=== PATIENT | male | born 1960 | race Caucasian/White ===

== ENCOUNTER 2021-10-05 15:18 | Outpatient (CLI) | payer BC, SELFPAY ==
--- NOTE | ~2021-10-05 | XR_ITS ---
EXAMINATION: XR abdomen/kub 1V EXAM DATE: 10/05/2021 15:52 INDICATION: Chronic Bilateral Renal Stones, No Pain Currently TECHNIQUE: Frontal projection(s) of the abdomen for interpretation. There are no prior studies for co mparison. FINDINGS: Calcifications, possible sizable bilateral nephrolithiasis identified, indicated. Correlate with patient's prior cross-sectional imaging. Nonobstructive bowel gas pattern. Colonic stool and ga s. Mild to moderate symmetric bilateral hip osteoarthritis. IMPRESSION: Probable bilateral nephrolithiasis. Reviewed, dictated and finalized at location G. IESEL PRODUCT DEVELOPMENT MANAGER
== END 2021-10-05 15:19 | disposition home or self-care (01) ==
PROVIDERS: PCP Family Medicine; Visit Provider Nurse Practitioner Adult Health
DX: N20.0 Calculus of kidney (principal); M16.0 Bilateral primary osteoarthritis of hip
CPT/HCPCS: 74018

== ENCOUNTER 2021-11-14 15:36 | Outpatient (CLI) | payer BC, SELFPAY ==
--- NOTE | ~2021-11-14 | XR_ITS ---
EXAMINATION: XR abdomen/kub 1V DATE: 11/14/2021 15:57 INDICATION: Renal stone TECHNIQUE: A supine view of the abdomen on 2 radiographs was obtained. COMPARISON: 10/05/2021 FINDINGS: Again seen are calcifications projecting over the bilateral kidneys likely representing renal stones. The 2 on the right measure 4 mm and 10 mm in the 3 and the left measured 2 mm 8 mm and 6 mm. No ston es seen along the course of ureters. Bone island at the left iliac wing. Couple small phleboliths in the right hemipelvis. Normal bowel gas pattern. Visualized portion of the lung bases are clear. IMPRESSION: 1. Unchanged bilateral nephrolithiasis. Reviewed, dictated and finalized at location A. OBIAL SPECIALIST
== END 2021-11-14 15:37 | disposition home or self-care (01) ==
LOC: ANHIMG 15:40
PROVIDERS: PCP Family Medicine; Visit Provider Nurse Practitioner Adult Health
DX: N20.0 Calculus of kidney (principal)
CPT/HCPCS: 74018

== ENCOUNTER 2022-03-13 10:43 | Outpatient (CLI) | payer BC, SELFPAY ==
--- NOTE | ~2022-03-13 | XR_ITS ---
XR abdomen/kub 1V DATE: 03/13/2022 11:02 INDICATION: Calcium kidney stone TECHNIQUE: AP projection, 2 views COMPARISON: November 14, 2021 KUB FINDINGS: Multiple bilateral calcified kidney stones are again noted. No calcified stones are suggest ed over the course of the ureters. There is a fairly prominent amount of fecal material in the colon but no apparent bowel obstruction. No visceromegaly is noted. IMPRESSION: Bilateral calcified kidney stones Reviewed, dictated and finalized at Location A. Reviewed, dictated and finalized at location A.
== END 2022-03-13 10:44 | disposition home or self-care (01) ==
PROVIDERS: PCP Family Medicine; Visit Provider Urology
DX: N20.0 Calculus of kidney (principal)
CPT/HCPCS: 74018

== ENCOUNTER 2022-09-13 10:59 | Outpatient (CLI) | payer BC, SELFPAY ==
--- NOTE | ~2022-09-13 | XR_ITS ---
EXAMINATION: XR abdomen/kub 1V INDICATION: Calcium TECHNIQUE: Supine views of the abdomen were obtained on 2 radiographs. COMPARISON: 03/13/2022 FINDINGS: There are adjacent stones of the left kidney lower pole measuring seven 5 mm. There is stab le 9 mm stone in the right kidney. Smaller stones of the right kidney measure up to 5 mm. No stones a re identified along the expected courses of the ureters or in the urinary bladder the bowel gas patte rn is normal. The visualized lung bases. There is moderate osteoarthritis of the hips. IMPRESSION: 1. Stable bilateral nephrolithiasis. Reviewed, dictated and finalized at location A. ENT
== END 2022-09-13 11:00 | disposition home or self-care (01) ==
PROVIDERS: PCP Family Medicine; Visit Provider Urology
DX: N20.0 Calculus of kidney (principal)
CPT/HCPCS: 74018

== ENCOUNTER 2023-10-10 10:01 | Outpatient (CLI) | payer BC, SELFPAY ==
--- NOTE | ~2023-10-10 | XR_ITS ---
XR abdomen/kub 1V DATE: 10/10/2023 10:27 INDICATION: Right flank pain. Calcium kidney stone. TECHNIQUE: Supine and upright AP views COMPARISON: None FINDINGS: There are bilateral lower pole renal calcified calculi and an approximately 7 mm mid to upp er right renal calcified calculus, probable additional small right renal calculus(calculi). There is a small calcification overlying the lower left pelvic area; distal left ureteral or ureterov esical junction calcified calculus is not excluded. No other apparent urinary tract calculus is detected. Noncontrast CT abdomen examination would be more definitive for evaluation of urinary tract calculi. No evidence of bowel obstruction. No visceromegaly is detected. Included skeletal structures appear u nremarkable. IMPRESSION: Bilateral nephrolithiasis; cannot exclude distal left ureteral or ureterovesical junction calcified calculus. Consider noncontrast CT abdomen pelvis for more definitive evaluation of urinary tract calculi. Reviewed, dictated and finalized at Location A. Reviewed, dictated and finalized at location B. WIRE ARTIST IMPRESSION: Bilateral nephrolithiasis; cannot exclude distal left ureteral or u reterovesical junction calcified calculus. Consider noncontrast CT abdomen pelv is for more definitive evaluation of urinary tract calculi.
== END 2023-10-10 10:02 | disposition home or self-care (01) ==
LOC: ANHIMG 10:02
PROVIDERS: PCP Family Medicine; Visit Provider Urology
DX: N20.0 Calculus of kidney (principal)
CPT/HCPCS: 74018

== ENCOUNTER 2024-04-22 11:54 | Outpatient (CLI) | payer BC, SELFPAY ==
--- NOTE | ~2024-04-22 | XR_ITS ---
XR abdomen/kub 1V DATE: 04/22/2024 12:12 INDICATION: Calcium kidney stone TECHNIQUE: AP projection, 2 views COMPARISON: None FINDINGS: Multiple bilateral renal calcifications, consistent with bilateral nephrolithiasis, relativ baron stable in appearance on the right since 10/10/2023, with movement of a circular approximately 9 mm calcified calculus from the left hilar area to the lower pole of the left kidney adjacent to multipl e other lower pole left renal calcified calculi, present on 10/10/2023. No visceromegaly is evident. No bowel obstruction is detected.. IMPRESSION: Chronic bilateral nephrolithiasis, relatively stable in appearance overall since 4 Reviewed, dictated and finalized at Location A. Reviewed, dictated and finalized at location J. IMPRESSION: Chronic bilateral nephrolithiasis, relatively stable in appearance overall since 10/10/2023
== END 2024-04-22 11:55 | disposition home or self-care (01) ==
LOC: ANHIMG 11:59
PROVIDERS: Visit Provider Urology
DX: N20.0 Calculus of kidney (principal)
CPT/HCPCS: 74018

== ENCOUNTER 2025-07-11 13:22 | Outpatient (CLI) | payer BC, SELFPAY ==
--- NOTE | ~2025-07-11 | XR_ITS ---
EXAMINATION: XR abdomen/kub 1V, 07/11/2025 13:35 CDT HISTORY: kidney stone COMPARISON: No comparisons available. Technique: 3 view. Findings: Bowel gas pattern unremarkable. No obstruction. Moderate fecal content limits evaluation, no renal calculi are identified No acute osseous abnormality. Impression: 1. No acute abnormality. Reviewed, dictated and finalized at location P. Impression: 1. No acute abnormality.
[2025-07-11 14:38] LABS: Hematocrit 48.0 % (42.0-52.0); Hemoglobin 15.8 g/dL (14.0-18.0)
--- OUTSIDE RECORDS SUMMARY | 2025-07-11 14:40 | XMS_ITS | Clinical Summary ---
Author Organization [facility] Address [address] [place] [address] Care Team Providers Care Grounds Supervisor Name Role Phone Connie Carpenter MD Unavailable [phone] Yudith Fontana NP Primary Care Provider [phone] Elle Bal Unavailable [phone] Allergies Active Allergy Reactions Criticality Noted Date Comments Cinnamon Other (See comments),Stomach upset Low 04/14/2019 Severe indigestion for weeks Mold Unknown 05/20/2024 Penicillins Hives,Rash Medium 07/19/2020 Cefazolin was administered in 06/2024 Shellfish Containing Products Unknown 05/20/2024 Zovacab-Lip-Ivd Reductase Inhibitors Other (See comments) Low 09/09/2024 Muscle/Body aches Sulfa (Sulfonamide Antibiotics) Rash Medium 04/15/2019 Medications hydroCHLOROthia zide (MICROZIDE) 12.5 mg capsule Take 1 capsule (12.5 mg total) by mouth nightly Active furosemide (LASIX) 40 mg tablet Take 2 tablets (80 mg total) by mouth nightly Active potassium chloride ER 10 mEq CR tablet Take 2 tablet/capsule (20 mEq total) by mouth nightly Active ibuprofen 200 mg tab/cap Take 1 tablet/capsule (200 mg total) by mouth every 6 (six) hours as needed for pain Active vitamin b complex tablet Take 1 tablet by mouth every evening Active cholecalciferol 25 mcg (1,000 unit) tablet Take 2 tablets (2,000 Units total) by mouth every evening Active magnesium gluconate 200 mg tabletIndicatio ns:hypomagnesem ia Take 1 tablet (200 mg total) by mouth every evening Active fluticasone propionate (FLOVENT HFA) 220 mcg/actuation inhaler Inhale 2 puffs 2 (two) times a day 8 Active fluticasone propionate (FLONASE) 50 mcg/actuation nasal spray Administer 2 sprays into affected nostril(s) nightly Active LANTUS 100 unit/mL (3 mL) pen for injection Inject 20 Units under the skin 2 (two) times a day 4 Active testosterone cypionate (DEPO-TESTOTERO NE) 200 mg/mL injection Inject 0.5 mL (100 mg total) into the muscle as instructed once a week Active tadalafiL (CIALIS) 5 mg tablet Take 1 tablet (5 mg total) by mouth daily as needed Takes up to 4 tablets daily Active acetaminophen (TYLENOL) 325 mg tablet Take 1 tablet (325 mg total) by mouth every 6 (six) hours as needed for fever or headaches 4 Active colistin (COLYMYCIN) 150 mg injection Mixed in neomed bottle (nasal rinse) with Mupirocin, Itraconazole Methylprednisolo ne- 20, 50, 5mg Active docusate sodium (COLACE) 100 mg capsuleIndicati ons:constipatio n Take 1 capsule (100 mg total) by mouth every morning Active tirzepatide (Mounjaro) 2.5 mg/0.5 mL pen injectorIndicat ions:type 2 diabetes mellitus Inject 0.5 mL (2.5 mg total) under the skin every 7 days Takes on Fridays As of 09/09/24 last dose was 09/03/24 Active triamcinolone (KENALOG) 0.1 % cream Apply topically as needed for irritation Active aspirin 325 mg enteric coated tablet Take 1 tablet (325 mg total) by mouth every morning Resume in 5 days, 09/28/2024 4 Active Active Problems Problem Noted Date Diagnosed Date White coat syndrome with diagnosis of hypertensi on 09/21/2024 Renal stone 07/06/2024 Calculus of kidney 05/20/2024 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 07/09/2016 Laryngeal spasm 07/09/2016 Chronic cough 09/01/2014 Surgical History Surgery Date Site/Laterality Comments NEPHROURETERAL STENT PLACEMENT NEW ACCESS RIGHT Right URETERAL STENT PLACEMENT VIA EXISTING TRACT RIGHT 07/07 Right PERCUTANEOUS NEPHROSTOMY PCN LEFT 09/21/2024 Left URETERAL STENT PLACEMENT VIA EXISTING TRACT LEFT 09/23 Left Medical History Medical History Date Comments Calculus of kidney HTN (hypertension) Diabetes HLD (hyperlipidemia) Sleep apnea Family History Medical History Relation Name Comments Cancer Father Family history of malignant neoplasm - (Added by TW Conv) Cancer Mother Family history of malignant neoplasm - (Added by TW Conv) Relation Name Status Comments Father Mother Social History Tobacco Use Types Packs/Day Years Used Date Smoking Tobacco: Never AUDIT-C Answer Date Recorded Q1: How often do you have a drink containing alc ohol? 2-3 times a week 09/09/2024 Q2: How many drinks containi ng alcohol do you have on a typical day when you are drinking? 1 or 2 09/09/2024 Q3: How often do you have si x or more drinks on one occasion? Never 09/09/2024 Personal Safety Answer Date Recorded Have you ever been in or are you currently in a harmful physical or emotional relationship or is someone making you feel afraid or unsafe? Denies 09/21/2024 Sex and Gender Information Value Date Recorded Sex Assigned at Not on file Legal Sex Male 3:10 AM FIELD TRAINING AGENT Gender Identity Not on file Sexual Orientation Not on file Obstetrics History Last Filed Vital Signs Vital Sign Reading Time Taken Comments Blood Pressure 167/72 09/23/2024 1:00 PM FIELD TRAINING AGENT Pulse 82 09/23/2024 1:00 PM FIELD TRAINING AGENT Temperature 36.7 C (98 F) 09/23/2024 1:00 PM FIELD TRAINING AGENT Respiratory Rate 16 09/23/2024 1:00 PM FIELD TRAINING AGENT Oxygen Saturation 96% 09/23/2024 1:00 PM FIELD TRAINING AGENT Inhaled Oxygen Concentration - - Weight 140.6 kg (310 lb) 09/21/2024 7:49 AM FIELD TRAINING AGENT Height 185.4 cm (6' 1) 09/21/2024 7:49 AM FIELD TRAINING AGENT Body Mass Index 40.9 09/21/2024 7:49 AM FIELD TRAINING AGENT Plan of Treatment Health Maintenance Due Date Last Done Comments Albumin Creatinine Ratio, Urine 1961 Colon Cancer Screening-Colonoscopy 1961 Depression Screening 1961 Hepatitis C Screening 1961 Prostate Cancer Screening-PSA 1961 Dilated Eye Exam 1961 Foot Exam 1961 Lipid Panel 1961 Hepatitis B Screening 1979 Regular Well Visit/Exam 18-64 1979 Zoster Vaccine (1 of 2) 2011 Pneumococcal vaccine <65 (2 of 2 - PPSV23, PCV20, or PCV21) 10/25/2020 08/30/2020 Hemoglobin A1C 12/28/2024 06/29/2024, 02/19/2019 Covid-19 Vaccine (2 - 2024-2 6 season) 2025 10/11/2021 Influenza Vaccine (#1) 2025 eGFR 09/23/2025 09/23/2024, 08/30, 09/21/2024, Additional history exists DTaP/Tdap/Td Vaccine (2 - Td or Tdap) 08/16/2029 08/16/2019 Medical Devices Implanted Type Area Chief Technology Officer Device Identifier Shelf Expiration Date Model / Serial / Lot CloudBase3 Amplatz Rb 8.5fr 28cm 6 Sideport Introducer Catheter String [id number] - [id number] - [id number] Implanted:Qty: 1 on 07/07/2024 at [facility] [employer] 03/03/2027 [id number] / [id number] / [id number] [employer] Amplatz Rb 8.5fr 28cm 6 Sideport Introducer Catheter String [id number] - [id number] Implanted:Qty: 1 on 09/23/2024 at [facility] [employer] 07/11/2026 [id number] / / [id number] Procedures Procedure Name Priority Date/Time Associated Diagnosis Comments EGFR Routine 09/23/2024 4:52 AM FIELD TRAINING AGENT HEMOGLOBIN A1C Routine 06/29/2024 1:08 PM CDT Preop testing from Last 3 Months or Most Recently Relevant to Health Maintenance Results * eGFR (09/23/2024 4:52 AM FIELD TRAINING AGENT) eGFR 78 >=60 mL/min/1. 73 m2 Comment: Interpretive Data Reference Interval Normal >/= 90 mL/min/1.73m2 Mildly decreased* 60 - 89 mL/min/1.73m2 Mildly to moderately decreased 45 - 59 mL/min/1.73m2 Moderately to severely decreased 30 - 44 mL/min/1.73m2 Severely decreased 15 - 29 mL/min/1.73m2 Kidney Failure < 15 mL/min/1.73m2 *Relative to young adult level Estimated glomerular filtration rate is determined by the 2020 CKD-EPI equation recommended by the National Kidney Foundation (A Unifying Approach to GFR Estimation: Recommendations of the NKF-ASK Task Force on Reassessing the Inclusion of Race in Diagnosing Kidney Disease, JASN 2020). The CKD-EPI equation should not be used for patients with unstable renal function and has not been validated in children and those over 70. Current interpretive data was last reviewed 2021. Blood 09/23/2024 4:52 AM FIELD TRAINING AGENT 09/23/2024 5:16 AM FIELD TRAINING AGENT us Connie Carpenter MD LAB BLOOD ORDERABLES Final Re sult Performing Organization Address City/State/[facility] Co de Phone Number [facility] [address] [place] [address] * (ABNORMAL) Hemoglobin A1c (06/29/2024 1:08 PM CDT) Hgb A1C 7.6(H) 4.0 - 5.6 % Estimated Average Glucose 171 mg/dL [facility] Comment: The ADA recommends reporting an estimated Average Glucose (eAG) with all Hemoglobin A1c results using the equation derived from a study of 507 normal and diabetic adults. Minority populations were underrepresented and children were not included. (Diabetes Care 31:4036-7667, 2008). The eAG is not equivalent to a fasting glucose. Blood 06/29/2024 1:08 PM CDT 06/29/2024 1:08 PM CDT us Annetta MATOS LAB BLOOD ORDERABLES Fin al Result [facility] [address] Department [place] [address] from Last 3 Months or Most Recently Relevant to Health Maintenance [place] For more information, please contact: [phone] * LIMITED - No CPR (Latest Code Status on File) Date Activated Date Inactivated Comments 09/21/2024 6:05 PM 09/23/2024 10:24 PM Question Answer Comments Provide aggressive medical m anagement before a full cardiopulmonary arrest occurs. Use antibiotics, IV Fluids, and medical treatment unless specifically selected below: No intubation * Full Code Date Activated Date Inactivated Comments 09/21/2024 2:01 PM 09/21/2024 6:05 PM * Full Code Date Activated Date Inactivated Comments 07/06/2024 7:24 PM 07/08/2024 10:33 PM Care Teams Grounds Supervisor Relationship Specialty Start Date End Date Yudith Fontana NP [address] [place] [address] PCP - General Stamp Pad Finisher 09/08/24 Connie Carpenter MD [address] [facility] [address] [place] [address] Consulting Physician Urology 07/08/24 Elle Bal PA [address] [place] [address] Physician Volunteer Coordinator Family Medicine 01/11/25
--- OUTSIDE RECORDS SUMMARY | 2025-07-11 14:40 | XMS_ITS | Clinical Summary ---
Author Organization [facility] Address [address] [place] [address] Care Team Providers Care Nurse Transition Name Role Phone Tiago Zuniga MD Unavailable [phone] Belinda Lorenzo APRN-ORDER ENTRY TECHNICIAN Primary Care Provider [phone] Source Comments [facility],non-owned Affiliates and Associated Physician Practices is amultiple site organization consisting of ambulatory clinics and hospital sitesin [place], [place], [place] and [place]. This disclosure is being madepursuant to the Care Everywhere program and may not contain all information available regarding this patient. Last updated 18.[facility] Allergies Active Allergy Reactions Criticality Noted Date Comments Penicillins Rash Medium 09/18/2022 Perfumes and Air Fresheners [Other] Other 11/19/2022 Per patient-Air Fresheners and Perfumes makes his lungs hurt. Sulfa Drugs Rash Medium 09/18/2022 Medications * Be aware that medications may not be up to date on this document. Alwaysverify current medications with the patient. Loratadine 10 MG Take by mouth once daily Active atorvastatin (Lipitor) 10 MG tablet Take 1 (one) tablet by mouth at bedtime Active fluticasone hfa 220 (Flovent HFA 220) 220 MCG/ACT inhaler Inhale by mouth 2 times daily Active fluticasone propionate (Flonase) 50 MCG/ACT nasal spray [place] 2 (two) sprays into each nostril 2 times daily Active furosemide (Lasix) 40 MG tablet Take 2 (two) tablets by mouth once daily Active triamcinolone acetonide (Kenalog) 0.5 % cream Apply to affected area 3 times daily Active losartan (Cozaar) 100 MG tablet Take 1 (one) tablet by mouth once daily Active metFORMIN (Glucophage) 500 MG tablet Take 1 (one) tablet by mouth 2 times daily with morning and evening meal Active potassium chloride ER (Klor-Con M) 10 MEQ tablet Take 1 (one) tablet by mouth once daily Active tadalafil (Cialis) 5 MG tablet Take 1 (one) tablet by mouth once as needed Active testosterone cypionate (Depo-Testoster one) 200 MG/ML injection Inject into muscle every 7 days Active MULTIPLE VITAMIN PO Take by mouth once daily Active aspirin EC (Ecotrin) 325 MG tablet Take 1 (one) tablet by mouth every morning 09/23/2024 Active anastrozole (Arimidex) 1 MG tablet Take 1 (one) tablet by mouth once daily 11/03/2024 Active urea ([facility]) 20 %Indications:Xe rosis of skin Apply to affected area once daily 100 g 11/16/2024 Active Active Problems No known active problems Family History Medical History Relation Name Comments Cancer Father Cancer Mother Relation Name Status Comments Father Mother Sister Alive Social History Tobacco Use Types Packs/Day Years Used Date Smoking Tobacco: Former Cigarettes Smokeless Tobacco: Never Tobacco Cessation:Counseling Given: Not Answered Alcohol Use Standard Drinks/Week Comments Yes 0 (1 standard drink = 0.6 oz pur e alcohol) a little before bedtime Sex and Gender Information Value Date Recorded Sex Assigned at Not on file Legal Sex Male 4:16 AM CHARGE OUT CLERK Gender Identity Not on file Sexual Orientation Not on file Last Filed Vital Signs Vital Sign Reading Time Taken Comments Blood Pressure 150/88 11/16/2024 3:13 PM CHARGE OUT CLERK Pulse 82 11/16/2024 3:13 PM CHARGE OUT CLERK Temperature 36.7 C (98.1 F) 11/16/2024 3:13 PM CHARGE OUT CLERK Respiratory Rate 20 11/16/2024 3:13 PM CHARGE OUT CLERK Oxygen Saturation 96% 11/16/2024 3:13 PM CHARGE OUT CLERK Inhaled Oxygen Concentration - - Weight 144.2 kg (318 lb) 11/16/2024 3:13 PM CHARGE OUT CLERK Height 185.4 cm (6' 1) 11/16/2024 3:13 PM CHARGE OUT CLERK Body Mass Index 41.96 11/16/2024 3:13 PM CHARGE OUT CLERK Plan of Treatment Health Maintenance Due Date Last Done Comments MULUGETA (AGES 45-75) - COL ON CA SCREENING 1960 CT COLONOGRAPHY - COLON CA SCREENING 1960 FIT - COLON CA SCREENING 1960 FLEX SIG - COLON CA SCREENING 1960 HIV SCREENING 1976 HEPATITIS C SCREENING 08/06/1979 DTAP/TDAP/TD VACCINES (1 - Tdap) 1980 PNEUMOCOCCAL VACCINE 50+ (1 of 2 - PCV) 1980 ZOSTER VACCINE (1 of 2) 2011 Respiratory Syncytial Virus (RSV) Vaccine Pt: or over 60 yrs (1 - Risk 60-74 years 1-dose series) 2021 DEPRESSION SCREENING 09/29/2024 COVID-19 VACCINE (2 - 2024-2 6 season) 2025 10/11/2021 INFLUENZA VACCINE (#1) 2025 SCREENING FOR DIABETES 12/07/2025 , 12/02/2022 COLON MONITORING 12/02/2032 12/02/2022, 12/02/2022 COLONOSCOPY - COLON CA SCREENING 12/02/2032 12/02/2022, 12/02/2022 Colorectal Cancer Screening 12/02/2032 HEPATITIS B VACCINE Aged Out No longe r eligible based on patient's age to complete this topic HIB VACCINE Aged Out No longer eligi ble based on patient's age to complete this topic HPV VACCINE Aged Out No longer eligi ble based on patient's age to complete this topic MENINGOCOCCAL (Group B) VACCINE SHARED DECISION-MAKING Aged Out No longer eligible based on patient's age to complete this topic MENINGOCOCCAL GROUPS A/C/Y/W VACCINE Aged Out No longer eligible b ased on patient's age to complete this topic Procedures Procedure Name Priority Date/Time Associated Diagnosis Comments BASIC METABOLIC PANEL (CALCIUM TOTAL) STAT 12/07/2022 2:58 AM CHARGE OUT CLERK ENDOSCOPY, COLON, DIAGNOSTIC Routine 12/02/2022 8:00 AM CHARGE OUT CLERK from Last 3 Months or Most Recently Relevant to Health Maintenance Results * (ABNORMAL) BASIC METABOLIC PANEL (CALCIUM TOTAL) (12/07/2022 2:58 AM CHARGE OUT CLERK) Glucose 132(H) 70 - 125 mg/dL 12/07/2022 3:18 AM [facility] Sodium 136 136 - 145 mmol/L 12/07/2022 3:18 AM [facility] Potassium 3.4 3.4 - 5.1 mmol/L 12/07/2022 3:18 AM [facility] Chloride 100 98 - 107 mmol/L 12/07/2022 3:18 AM [facility] CO2 24 22 - 29 mmol/L 12/07/2022 3:18 AM [facility] Calcium 9.7 8.4 - 10.2 mg/dL 12/07/2022 3:18 AM [facility] Anion Gap 15 10 - 20 mmol/L 12/07/2022 3:18 AM [facility] BUN 16.2 8.4 - 25.7 mg/dL 12/07/2022 3:18 AM [facility] Creatinine 1.19 0.72 - 1.25 mg/dL 12/07/2022 3:18 AM [facility] eGFR 69(L) >90 mL/min/1.7 3m2 12/07/2022 3:18 AM [facility] Comment:The GFR result was c alculated using the updated CKD-EPI Creatinine Equation (2020). Blood BLOOD SPECIMEN / Unknown Venipuncture / Unknown 12/07/2022 2:58 AM CHARGE OUT CLERK 12/07/2022 3:01 AM [facility] us Bryant Machuca MD LAB - CHEMISTRY ORDERABLES Shannan l Result Performing Organization Address City/State/[facility] de Phone Number [facility] [address] * ENDOSCOPY, COLON, DIAGNOSTIC (12/02/2022 8:00 AM [facility]) Report Endoscopy POC _ Patient Name: Keshawn Hernandez Procedure Date: 12/02/2022 8:00 AM Date of : 1960 Admit Type: Outpatient Age: 62 Gender: Male Attending MD: Tiago Zuniga MD _ Procedure: Colonoscopy Indications: High risk colon cancer surveillance: Personal history of colonic polyps Providers: Tiago Zuniga MD (Doctor) Referring MD: Zac Samson MD (Referring MD) Medicines: Monitored Anesthesia Care Complications: No immediate complications. _ Estimated Blood Loss: Estimated blood loss was minimal. Procedure: Pre-Anesthesia Assessment: - Prior to the procedure, a History and Physical was performed, and patient medications and allergies were reviewed. The patient's tolerance of previous anesthesia was also reviewed. The risks and benefits of the procedure and the sedation options and risks were discussed with the patient. All questions were answered, and informed consent was obtained. Prior Anticoagulants: The patient has taken no previous anticoagulant or antiplatelet agents. ASA Grade Assessment: III - A patient with severe systemic disease. After reviewing the risks and benefits, the patient was deemed in satisfactory condition to undergo the procedure. After I obtained informed consent, the scope was passed under direct vision. Throughout the procedure, the patient's blood pressure, pulse, and oxygen saturations were monitored continuously. The Scope #15 was introduced through the anus and advanced to the cecum, identified by appendiceal orifice and ileocecal valve. The colonoscopy was performed without difficulty. The patient tolerated the procedure well. The quality of the bowel preparation was poor. Findings: The perianal and digital rectal examinations were normal. A 5 mm polyp was found in the cecum. The polyp was sessile. This was biopsied with a cold forceps for histology. Verification of patient identification for the specimen was done by the nurse. Estimated blood loss was minimal. Many medium-mouthed diverticula were found in the sigmoid colon, descending colon, transverse colon and hepatic flexure. _ Impression: - Preparation of the colon was poor. - One 5 mm polyp in the cecum. Biopsied. - Diverticulosis in the sigmoid colon, in the descending colon, in the transverse colon and at the hepatic flexure. Recommendation: - Discharge patient to home (with escort). - Patient has a contact number available for emergencies. The signs and symptoms of potential delayed complications were discussed with the patient. Return to normal activities tomorrow. Written discharge instructions were provided to the patient. - High fiber diet. - Continue present medications. - Await pathology results. - Repeat colonoscopy in 3 years for surveillance. - Return to referring physician at appointment to be scheduled. Dr Tiago Zuniga Tiago Zuniga MD 12/02/2022 8:35:38 AM Number of Addenda: 0 Note Initiated On: 12/02/2022 8:00 AM Scope In: 8:15:28 AM Scope Withdrawal Time: Scope Withdrawal Time: Scope Out: 8:32:28 AM [facility] 12/02/2022 8:00 AM CHARGE OUT CLERK us Tiago Zuniga MD GI PROCEDURE ORDERABLES Edited Result - Final [facility] from Last 3 Months or Most Recently Relevant to Health Maintenance Insurance [facility] Member Subscriber Plan / Payer (Ef fective 2020-Present) Name:Keshawn Hernandez Relation to Subscriber:Self Name:KESHAWN HERNANDEZ Payer ID:[id number] (NAIC) Type:PPO Address: [address] [facility] Care Teams Nurse Transition Relationship Specialty Start Date End Date Bj TitoOK brockN-ORDER ENTRY TECHNICIAN [address] [address] PCP - General Nurse Practitioner Family 04/05/24 Tiago Zuniga MD [address] [address] Physician Gastroenterology 12/02/22
[2025-07-15 19:08] LABS: Estradiol, Sensitive 7.7 pg/mL (8.0-35.0)
[2025-07-18 21:07] LABS: Testosterone, Total, LC/MS 622 ng/dL (.)
== END 2025-07-11 13:23 | disposition home or self-care (01) ==
PROVIDERS: Visit Provider Urology
DX: N20.0 Calculus of kidney (principal); E29.1 Testicular hypofunction
CPT/HCPCS: 36415; 74018; 82670; 84403; 85014; 85018